=== PATIENT | male | born 1975 | race Caucasian/White ===

== ENCOUNTER 2016-09-19 07:41 | Emergency (ER) | payer OTHER ==
[2016-09-19 08:00] VITALS: BP 145/65; PULSE 70; TEMP 98.8; BMI 29.2
--- NOTE | 2016-09-19 08:46 | PDOC ---
History of Present Illness - General Chief Complaint: Pain Stated Complaint: HANDS AND FOOT PAIN Time Seen by Provider: 09/19/16 08:46 History Source: Patient Exam Limitations: No Limitations - History of Present Illness Initial Comments: 09/19/16 09:18 Patient is here with complaints of numbness and in his hands and feet. States is been intermittent and progressive. has had problems with the soles of his feet on and off for the past few months. Some intermittent discoloration, "turned dark and then return to normal" . Has never SPoken of this with his private physician. Denies fevers, denies any trauma, works at a [employer] mostly standing for 8-10 hour shifts but wears solid and sturdy sneakers. Denies diabetes, or any peripheral vascular diseases. Is not a smoker does not use drugs or alcohol. Patient for relief of the symptoms. has a minor amount of this sensation now primarily in his feet and distal fingertips. Occurred: reports: other Severity: reports: mild Pain Location: reports: lower extremity, upper extremity (distal digits and feet ) Method of Injury: Yes: unknown Associated Symptoms (Fall): denies symptoms Past History - Travel Traveled outside of the country in the last 30 days: No Close contact w/someone who was outside of country & ill: No - Past Medical History Allergies/Adverse Reactions: Allergies Allergy/AdvReac Type Severity Reaction Status Date / Time No Known Allergies Allergy Verified 09/19/16 08:00 Home Medications: Ambulatory Orders No Home Medications 0 dose .ROUTE UTDICT 09/30/12 Naproxen [Naprosyn -] 500 mg PO BID #30 tablet 07/19/16 GI Disorders: Yes (GERD?) Suicide Attempt (Hx): No - Surgical History Cholecystectomy: Yes - Psycho/Social/Smoking Cessation Hx Anxiety: No Suicidal Ideation: No Smoking Status: No Smoking History: Never smoked Have you smoked in the past 12 months: No Number of Cigarettes Smoked Daily: 0 Information on smoking cessation initiated: No Hx Alcohol Use: No Drug/Substance Use Hx: No Substance Use Type: None Review of Systems - Review of Systems Able to Perform ROS?: Yes Is the patient limited [place] proficient: Yes Constitutional: Yes: See HPI. No: Symptoms Reported, Fever HEENTM: Yes: See HPI. No: Symptoms Reported, Throat Pain, Throat Swelling Respiratory: Yes: See HPI. No: Symptoms reported, Cough Musculoskeletal: Yes: Symptoms Reported Integumentary: Yes: Symptoms Reported, See HPI, Pallor. No: Bruising, Change in Color, Erythema, Flushing All Other Systems: Reviewed and Negative *Physical Exam - Vital Signs Last Vital Signs Temp Pulse Resp BP Pulse Ox 98.8 F 70 18 145/65 100 09/19/16 07:45 09/19/16 07:45 09/19/16 07:45 09/19/16 07:45 09/19/16 07:45 - Physical Exam General Appearance: Yes: Nourished, Appropriately Dressed. No: Apparent Distress HEENT: positive: EOMI, DEANA Neck: positive: Tender, Supple Respiratory/Chest: positive: Lungs Clear, Normal Breath Sounds Cardiovascular: positive: Regular Rhythm Gastrointestinal/Abdominal: positive: Normal Bowel Sounds, Soft. negative: Tender Musculoskeletal: positive: Normal Inspection Extremity: positive: Normal Capillary Refill, Normal Inspection (full range of motion to fingers and toes, and neurovascular intact,), Normal Range of Motion, Other. negative: Tender Integumentary: positive: Normal Color, Dry, Warm Neurologic: positive: law reporter II-XII NML intact, Fully Oriented, Alert, Normal Response, Motor Strength 5/ ED Treatment Course - LABORATORY CBC & Chemistry Diagram: 09/19/16 09:09 09/19/16 09:10 Progress Note - Progress Note Progress Note: Symptoms of Raynaud's, will check basic labs tried ibuprofen and reevaluate Medical Decision Making - Medical Decision Making 09/19/16 laboratory work within normal limits, and some mild relief with ibuprofen. Patient recommended follow-up with private physician who may recommend further evaluation/studies and consults with specialists including neurologist and vascular surgeon to rule out Raynaud's syndrome *DC/Admit/Observation/Transfer Diagnosis at time of Disposition: Raynauds disease Qualifiers: Raynaud?s-associated gangrene presence: without gangrene Qualified Code(s): I73.00 - Raynaud's syndrome without gangrene - Discharge Dispostion Disposition: HOME Condition at time of disposition: Stable Admit: No - Referrals Referrals: Tara Banks [Primary Care Provider] - - Patient Instructions Printed Discharge Instructions: Raynauds Disease and Phenomenon Additional Instructions: Rest, ENSURE footWEAR with good support and question Caffeine, stimulants or food/drinks that would cause blood vessels to constrict Physician for further evaluation and possible vascular evaluation Print Language: KHMER - Post Discharge Activity Work/School Note: Back to Work
[2016-09-19] MEDS ORDERED: IBUPROFEN 600 MG TABLET (FP) PO ONE ×2 (09:00→09:11)
[2016-09-19 09:28] LABS: EOSINOPHIL 2.6 % (0-4.5); MCH 30.8 pg (25.7-33.7); MEAN CELL VOLUME 90.6 fl (80-96); MEAN PLT VOLUME 7.8 fl (7.5-11.1); NEUTROPHILS 46.7 % (42.8-82.8); PLATELET COUNT 232 K/MM3 (134-434); RDW 13.6 % (11.9-15.9); WHITE BLOOD COUNT 5.1 K/mm3 (4.0-10.0)
[2016-09-19 09:49] LABS: ALBUMIN 3.8 g/dl (3.4-5.0); ANION GAP 6 (8-16); CALCIUM 8.9 mg/dL (8.5-10.1); CO2 29 mmol/L (21-32); CREATININE 0.9 mg/dL (0.7-1.3); GLUCOSE,RANDOM 99 mg/dL (74-106); SGOT/AST 19 U/L (15-37); SGPT/ALT 33 U/L (12-78)
[2016-09-19 09:51] LABS: ALK PHOS 89 U/L (45-117); BILIRUBIN,TOTAL 0.5 mg/dL (0.2-1.0); TOT PROT 7.3 g/dl (6.4-8.2)
[2016-09-19 10:03] LABS: C-REACTIVE PROTEIN < 0.3 MG/DL (0.00-0.3)
== END 2016-09-19 10:50 | disposition home or self-care (01) ==
LOC: JER 07:41
DX: I73.00 Raynaud's syndrome without gangrene (principal)
CPT/HCPCS: 36415; 80053; 85025; 85651; 86140; 99284-25

== ENCOUNTER 2018-12-20 18:06 | Emergency (ER) | payer SELFPAY, OTHER | END 2018-12-20 20:52 | disposition home or self-care (01) | LOC: JERFT 18:06 ==